=== PATIENT | male | born 1940 | race Caucasian/White ===

== ENCOUNTER 2017-07-03 08:06 | Inpatient (IN) | payer OTHER ==
[~2017-07-03] VITALS: Ht 170.2 cm; Wt 71.7 kg
[2017-07-03 08:41] LABS: EOSINOPHIL (%) 3.4 % (0-5); EOSINOPHIL (%) 3.7 % (0-5); EOSINOPHIL COUNT 0.3 K/uL (0-0.3); HEMATOCRIT 38.8 % (38.0-50.0); IMMATURE GRANULOCYTE (%) 0.5 % (0.0-0.7); INSTRUMENT ABS NEUTROPHIL CT 5.3 K/uL; INSTRUMENT ABS NEUTROPHIL CT 5.6 K/uL; LYMPHOCYTE COUNT 1.9 K/uL (1.0-2.8); MCH 32.6 PG (29.0-34.0); MCH 33.1 PG (29.0-34.0); MCHC 34.1 G/DL (30.0-36.0); MCHC 34.5 G/DL (30.0-36.0); MCV 95.6 FL (86-99); MCV 95.8 FL (86-99); MEAN PLAT.VOLUME 10.2 uM^3 (9.0-12.4); MEAN PLAT.VOLUME 10.4 uM^3 (9.0-12.4); MONOCYTE (%) 8.3 % (3-12); MONOCYTE (%) 8.6 % (3-12); MONOCYTE COUNT 0.7 K/uL (0-0.8); NEUTROPHIL (%) 63.8 % (45-76); NEUTROPHIL (%) 64.3 % (45-76); NEUTROPHIL COUNT 5.3 K/uL (1.8-6.4); NEUTROPHIL COUNT 5.6 K/uL (1.8-6.4); PLATELET COUNT 234 K/uL (156-360); PLATELET COUNT 236 K/uL (156-360); RBC DIS.WIDTH-CV 13.1 % (11.8-14.6); RBC DIS.WIDTH-SD 45.7 % (39-53); RBC DIS.WIDTH-SD 46.4 % (39-53); RED BLOOD COUNT 4.05 M/uL (4.00-5.50); RED BLOOD COUNT 4.08 M/uL (4.00-5.50); WHITE BLOOD COUNT 8.4 K/uL (4.1-10.2); WHITE BLOOD COUNT 8.6 K/uL (4.1-10.2)
[2017-07-03 08:47] LABS: PROTHROMBIN TIME 11.2 SEC (10.2-12.9)
[2017-07-03 08:50] LABS: PTT 29.2 SEC (25-37)
[2017-07-03 09:06] LABS: TROP-I INTERPRETATION NEGATIVE; TROPONIN-I 0.01 ng/mL (0.0-0.30)
[2017-07-03 09:13] LABS: ALKALINE PHOSPHATASE 47 IU/L (3-129); ANION GAP 6 MEQ/L (2-14); CHLORIDE 106 MEQ/L (99-109); GFR ESTIMATE (CALCULATED) 45 mL/min/; GLUCOSE 99 mg/dL (70-99); POTASSIUM 4.2 MEQ/L (3.7-5.4); SAMPLE HEMOLYSIS CHECK 0; SAMPLE ICTERIC CHECK 0; SAMPLE LIPEMIA CHECK 0; SODIUM 139 MEQ/L (136-147); TOTAL BILIRUBIN 0.7 MG/DL (0.0-1.0); UREA NITROGEN (BUN) 26 mg/dL (9-23)
[2017-07-03 09:37] LABS: ANION GAP 8 MEQ/L (2-14); CHLORIDE 107 MEQ/L (99-109); GFR ESTIMATE (CALCULATED) 48 mL/min/; GLUCOSE 97 mg/dL (70-99); POTASSIUM 4.1 MEQ/L (3.7-5.4); SAMPLE HEMOLYSIS CHECK 0; SAMPLE ICTERIC CHECK 0; SAMPLE LIPEMIA CHECK 0; SODIUM 140 MEQ/L (136-147); UREA NITROGEN (BUN) 24 mg/dL (9-23)
[2017-07-03 09:56] LABS: ADD MIUA? NO; BILIRUBIN NEGATIVE; BLOOD NEGATIVE; COLOR YELLOW ((YELLOW)); GLUCOSE (STRIP) NEGATIVE; KETONES NEGATIVE; LEUKOCYTES NEGATIVE; NITRITE NEGATIVE; PROTEIN (STRIP) NEGATIVE; SPECIFIC GRAVITY 1.012 (1.000-1.030); UCUL ADDED? NO; UROBILINOGEN 0.2 MG/DL (0.2-1.0)
[2017-07-03 10:04] LABS: AMPHETAMINE NEGATIVE (500 ng/mL); BARBITURATES NEGATIVE (200 ng/mL); BENZODIAZEPINES NEGATIVE (150 ng/mL); COCAINE NEGATIVE (150 ng/mL); INTERNAL CONTROLS VALID? YES; METHADONE NEGATIVE (200 ng/mL); METHAMPHETAMINE NEGATIVE (500 ng/mL); OPIATES (MORPHINE) NEGATIVE (100 ng/mL); OXYCODONE NEGATIVE (100 ng/mL); PHENCYCLIDINE NEGATIVE (25 ng/mL); PROPOXYPHENE NEGATIVE (300 ng/mL); THC CANNABINOIDS NEGATIVE (50 ng/mL); TRICYCLIC ANTIDEPRESSANTS NEGATIVE (300 ng/mL)
[2017-07-03] MEDS ORDERED: LAMICTAL150 M1 PO (10:22)
[2017-07-03] MEDS ORDERED: THERA1 EAC2 PO (10:27)
[2017-07-03] MEDS ORDERED: [UNRECOGNIZED DRUG - OTHER] PO (10:27)
[2017-07-03 11:00] LABS: HDL CHOLESTEROL 64 MG/DL (Desirable>=40); LDL CHOLESTEROL 133 mg/dL (Desirable<100); NON-HDL CHOLESTEROL 147 mg/dL (Desirable<160); TOTAL CHOLESTEROL 211 mg/dL (Desirable<200); TRIGLYCERIDES 68 MG/DL (Normal: <150)
[2017-07-03 11:28] LABS: MAGNESIUM 2.2 mg/dl (1.3-2.7)
[2017-07-03 13:43] VITALS: BP 151/82
[2017-07-03 15:03] VITALS: BP 149/81
[2017-07-03 19:52] VITALS: BP 126/66
[2017-07-04 00:24] VITALS: BP 125/70
[2017-07-04 03:44] VITALS: BP 109/60
[2017-07-04 07:03] LABS: EOSINOPHIL (%) 5.6 % (0-5); EOSINOPHIL COUNT 0.3 K/uL (0-0.3); HEMATOCRIT 33.6 % (38.0-50.0); IMMATURE GRANULOCYTE (%) 0.3 % (0.0-0.7); INSTRUMENT ABS NEUTROPHIL CT 3.6 K/uL; LYMPHOCYTE COUNT 1.4 K/uL (1.0-2.8); MCH 32.3 PG (29.0-34.0); MCHC 34.2 G/DL (30.0-36.0); MCV 94.4 FL (86-99); MEAN PLAT.VOLUME 10.3 uM^3 (9.0-12.4); MONOCYTE (%) 10.9 % (3-12); MONOCYTE COUNT 0.7 K/uL (0-0.8); NEUTROPHIL (%) 59.5 % (45-76); NEUTROPHIL COUNT 3.6 K/uL (1.8-6.4); PLATELET COUNT 229 K/uL (156-360); RBC DIS.WIDTH-SD 44.9 % (39-53); RED BLOOD COUNT 3.56 M/uL (4.00-5.50); WHITE BLOOD COUNT 6.1 K/uL (4.1-10.2)
[2017-07-04 07:18] LABS: Estimated Average Glucose 114 mg/dL (70-123); HEMOGLOBIN A1c (GLYCOHEMOGLOB) 5.6 % HGB (Below 5.7)
[2017-07-04 07:26] LABS: ANION GAP 7 MEQ/L (2-14); CHLORIDE 109 MEQ/L (99-109); GFR ESTIMATE (CALCULATED) 52 mL/min/; GLUCOSE 100 mg/dL (70-99); POTASSIUM 4.4 MEQ/L (3.7-5.4); SAMPLE HEMOLYSIS CHECK 0; SAMPLE ICTERIC CHECK 0; SAMPLE LIPEMIA CHECK 0; SODIUM 140 MEQ/L (136-147); UREA NITROGEN (BUN) 22 mg/dL (9-23)
[2017-07-04 07:35] VITALS: BP 129/76
[2017-07-04 11:29] VITALS: BP 131/81
[2017-07-04] MEDS ORDERED: ATORVASTATIN CA40 MG PO (14:51)
[2017-07-04] MEDS ORDERED: ASPIR-LOW81 MG PO (14:51)
== END 2017-07-04 15:24 | disposition home or self-care (01) | DRG 66 ==
LOC: EME 08:06 → EDOF 09:45 → ENRESERV 09:48 → 5WEST 13:00 → ENRESERV 13:28 → 5WEST 13:31 → 5SOUTH 13:31 → 5WEST 13:31 → ENRESERV 13:52 → 5SOUTH 14:30
PROVIDERS: Emergency Medicine; Hospitalist
DX: I63.9 Cerebral infarction, unspecified (principal); N18.9 Chronic kidney disease, unspecified; I71.9 Aortic aneurysm of unspecified site, without rupture; F10.10 Alcohol abuse, uncomplicated; Z80.3 Family history of malignant neoplasm of breast; Z82.49 Family history of ischemic heart disease and other diseases of the circulatory system
CPT/HCPCS: 70140; 70450; 70544; 70549; 70551; 80048; 80053; 80061; 81003; 82150; 83036; 83690; 83735; 84484; 85025; 85025 91; 85610; 85730; 86850; 86900; 86901; 93005; 93306; 99281; 99285; G0480; J1650; J7030